=== PATIENT | female | born 1955 | race Caucasian/White ===

== ENCOUNTER 2017-06-25 09:14 | Emergency (ER) | payer BC ==
[2017-06-25 10:40] VITALS: BP 154/95
--- NOTE | 2017-06-25 10:58 | UC ---
FLU HPI - HPI Summary HPI Summary: 1 day of fever chills, cough, sore throat, head and body aches - History of Current Complaint Chief Complaint: UCRespiratory Stated Complaint: TEMP(101.2) BODY ACHES/CHILLS Time Seen by Provider: 06/25/17 10:49 Hx Obtained From: Patient ?: No Onset/Duration: Gradual Onset, Lasting Days - 1, Still Present Severity Currently: Moderate Severity Initially: Moderate Pain Intensity: 6 Pain Scale Used: 0-10 Numeric Associated Signs & Symptoms: Positive: Fever, Myalgia, Cough, Sore Throat, Nasal Congestion, Headache - Allergy/Home Medications Allergies/Adverse Reactions: Allergies Allergy/AdvReac Type Severity Reaction Status Date / Time Penicillins [PCN] Allergy Hives Verified 06/25/17 10:40 Home Medications: Home Medications Ramipril CAP* [Altace CAP*] 5 mg PO DAILY 06/25/17 [History Confirmed 06/25/17] Sertraline* [Zoloft*] 150 mg PO DAILY 06/25/17 [History Confirmed 06/25/17] Simvastatin [Zocor 40 MG (NF)] 40 mg PO QPM 06/25/17 [History Confirmed 06/25/17 ] metFORMIN* [Glucophage 1000 MG TAB *] 1,000 mg PO DAILY 06/25/17 [History Confirmed 06/25/17] PMH/Surg Hx/FS Hx/Imm Hx Previously Healthy: No Endocrine History: Diabetes, Dyslipidemia Cardiovascular History: Hypertension Psychological History: Depression - Surgical History Surgical History: Yes Surgery Procedure, Year, and Place: TUBAL - Family History Known Family History: Positive: None - Social History Occupation: Employed Full-time Lives: With Family Alcohol Use: Rare Substance Use Type: None Smoking Status (MU): Never Smoked Tobacco Review of Systems Constitutional: Fever, Chills, Fatigue Skin: Negative Eyes: Negative ENT: Sore Throat, Nasal Discharge Respiratory: Cough Cardiovascular: Negative Gastrointestinal: Negative Genitourinary: Negative Motor: Negative Neurovascular: Negative Musculoskeletal: Arthralgia, Myalgia Neurological: Headache Psychological: Negative Is Patient Immunocompromised?: No All Other Systems Reviewed And Are Negative: Yes Physical Exam Triage Information Reviewed: Yes Appearance: Well-Nourished, Ill-Appearing - mild, Pain Distress - mild Vital Signs: Initial Vital Signs Temp 99.0 F 06/25/17 10:35 Pulse 127 06/25/17 10:35 Resp 16 06/25/17 10:35 BP 154/95 06/25/17 10:35 Pulse Ox 94 06/25/17 10:35 Vital Signs Reviewed: Yes Eye Exam: Normal Eyes: Positive: Conjunctiva Clear ENT Exam: Normal ENT: Positive: Normal ENT inspection, Hearing grossly normal, Pharyngeal erythema, Nasal congestion, TMs normal, Uvula midline. Negative: Tonsillar swelling, Tonsillar exudate, Trismus, Muffled voice, Hoarse voice, Sinus tenderness Dental Exam: Normal Neck exam: Normal Neck: Positive: Supple, Nontender, Enlarged Nodes @ - anterior cervical Respiratory Exam: Normal Respiratory: Positive: Chest non-tender, Lungs clear, Normal breath sounds, No respiratory distress, No accessory muscle use Cardiovascular Exam: Normal Cardiovascular: Positive: No Murmur, Pulses Normal, Brisk Capillary Refill, Tachycardia Musculoskeletal Exam: Normal Musculoskeletal: Positive: Strength Intact, ROM Intact, No Edema Neurological Exam: Normal Neurological: Positive: Alert, Muscle Tone Normal Psychological Exam: Normal Skin Exam: Normal Diagnostics - Laboratory Diagnostic Studies Completed/Ordered: rst, inf A/B All negative - Radiology No standard instances Xray Interpretation: No Acute Changes Radiology Interpretation Completed By: Radiologist Re-Evaluation - Re-Evaluation First Eval Change: Improved - sat 98 % Hr 117, rr 18 Flu Course/Dx - Course Course Of Treatment: ZIthromax, Robitussin and codiene , albuterol, increase fluids follow with pcp - Differential Dx/Diagnosis Provider Diagnoses: Hypertension in poor control, Bronchitis Discharge - Discharge Plan Condition: Stable Disposition: HOME Prescriptions: Albuterol HFA INHALER* [Ventolin HFA Inhaler*] 2 puff INH Q4H PRN #1 mdi PRN Reason: cough/chest congestion Azithromycin TAB* [Zithromax TAB (Z-KRISTAL) 250 mg #6 tabs] 2 tab PO .TODAY, THEN 1 DAILY #1 kristal Dextromethorphan-Guaifenesin [Guaifenesin-Dm 100-10 mg/5Ml] 5 - 10 ml PO QID PRN #90 ml MDD 40ml PRN Reason: cough Patient Education Materials: How to Use a Metered-Dose Inhaler (ED), Acute Bronchitis (ED), Hypertension (ED) Referrals: Lilly Mooney MD [Primary Care Provider] - 1 Week
--- NOTE | 2017-06-25 11:30 | RAD ---
Indication: Fever, cough. 2 views of the chest including dual energy PA views demonstrate no mediastinal shift. Hyperinflated lung lomeli are noted. No alveolar consolidation is noted. No pleural fluid, pneumonia or pneumothorax is noted. IMPRESSION: No active cardiopulmonary disease is noted.
== END 2017-06-25 11:46 | disposition home or self-care (01) ==
LOC: UCCORT 09:14
DX: I10 Essential (primary) hypertension (principal); J40 Bronchitis, not specified as acute or chronic; E11.9 Type 2 diabetes mellitus without complications; Z79.84 Long term (current) use of oral hypoglycemic drugs; E78.5 Hyperlipidemia, unspecified; F32.9 Major depressive disorder, single episode, unspecified
CPT/HCPCS: 71020; 87502; 87651; 99202; G0463